=== PATIENT | female | born 1945 | race Caucasian/White ===

== ENCOUNTER → 2016-11-29 | Outpatient (CLI) | payer MEDICARE, OTHER ==
[~2016-11-29] VITALS: Ht 162.6 cm; Wt 68.0 kg
[~2016-11-29] MED LIST: LIDOCAINE 1% INJ 20 ML (XYLOCAINE) VIAL INJ ONE
[2016-11-29 09:20] VITALS: BP 120/72
--- NOTE | 2016-11-29 10:42 | Diagnostic Imaging Report ---
EXAMINATION: Ultrasound-guided biopsy of a breast mass. A metallic clip placed to rosangela biopsy site. INDICATION: Left breast mass. CONSENT: Informed consent was obtained from the patient. The risks, benefits, potential complications and alternatives were reviewed and all questions answered to the patient's satisfaction. FINDINGS: Ultrasound images demonstrate a left breast mass at 4:00 zone, 3 CM from the nipple. PROCEDURE: After sterile preparation and draping, 1% lidocaine was utilized for local anesthesia. A 13-gauge guide needle was introduced under live ultrasound guidance to the level of the lesion. Good needle position was documented with ultrasound images. 14-gauge biopsy needle was utilized and core biopsies were performed. Multiple samples were obtained and sent to pathology. A metallic clip was placed to rosangela the site of the biopsy. A subsequent mammogram is performed and confirms the proper positioning of the clip. The patient tolerated the procedure well with no immediate complications. IMPRESSION: Successful ultrasound-guided core biopsy of 4:00 left breast mass. Dictated by: Dictated on workstation # [id number]
--- NOTE | 2016-11-29 11:32 | Diagnostic Imaging Report ---
CC and lateral views of the left breast performed. INDICATION: Documentation of clip position after ultrasound-guided biopsy. FINDINGS: There is a clip satisfactorily positioned in the left breast, and it appears to be along the prominent mass in the central aspect of the left breast slightly inferiorly. IMPRESSION: Satisfactory position of the biopsy clip in central left breast mass. Pathology results are pending. Dictated by: Dictated on workstation # [id number]
== END ==
LOC: RAD 08:35
PROVIDERS: ATTEND Surgery
DX: N63 Unspecified lump in breast (principal)
CPT/HCPCS: 19083

== ENCOUNTER → 2016-12-05 | Outpatient (CLI) | payer MEDICARE, OTHER ==
[2016-12-05 12:08] LABS: BASOPHILS % (AUTO) 1 % (0-10); EOSINOPHILS # (AUTO) 0.1 10^3/uL (0.0-0.3); EOSINOPHILS % (AUTO) 2 % (0-10); LYMPHOCYTES # (AUTO) 3.4 X 10^3 (1.0-4.0); LYMPHOCYTES % (AUTO) 40 % (12-44); MEAN CORPUSCULAR HEMOGLOBIN 29 PG (25-34); MEAN CORPUSCULAR HGB CONC 33 G/DL (32-36); MEAN CORPUSCULAR VOLUME 89 FL (80-99); MEAN PLATELET VOLUME 9.5 FL (7.4-10.4); MONOCYTES # (AUTO) 0.8 X 10^3 (0.0-1.0); MONOCYTES % (AUTO) 9 % (0-12); NEUTROPHILS # (AUTO) 4.1 X 10^3 (1.8-7.8); NEUTROPHILS % (AUTO) 49 % (42-75); PLATELET COUNT 293 10^3/uL (130-400); RED BLOOD COUNT 5.04 10^6/uL (4.35-5.85); RED CELL DISTRIBUTION WIDTH 13.1 % (10.0-14.5); WHITE BLOOD COUNT 8.4 10^3/uL (4.3-11.0)
[2016-12-05 12:22] LABS: INR 0.9 (0.8-1.4); PROTHROMBIN TIME PATIENT 11.9 SEC (12.2-14.7)
[2016-12-05 12:30] LABS: ALANINE AMINOTRANSFERASE 22 U/L (0-55); ALBUMIN 4.4 GM/DL (3.2-4.5); ANION GAP 11 MMOL/L (5-14); ASPARTATE AMINO TRANSFERASE 20 U/L (5-34); BILIRUBIN,DIRECT 0.7 MG/DL (0.0-0.3); BILIRUBIN,INDIRECT 1.5 MG/DL; BILIRUBIN,TOTAL 2.2 MG/DL (0.1-1.0); BLOOD UREA NITROGEN 18 MG/DL (7-18); BUN/CREATININE RATIO 22; CALCIUM 10.2 MG/DL (8.5-10.1); CARBON DIOXIDE 22 MMOL/L (21-32); CHLORIDE 108 MMOL/L (98-107); CREATININE SERUM 0.82 MG/DL (0.60-1.30); GFR ESTIMATED > 60; GLUCOSE 109 MG/DL (70-105); POTASSIUM 4.3 MMOL/L (3.6-5.0); SODIUM 141 MMOL/L (135-145); TOTAL PROTEIN 7.5 GM/DL (6.4-8.2)
== END ==
LOC: LAB 11:32
PROVIDERS: ATTEND Surgery
DX: C50.912 Malignant neoplasm of unspecified site of left female breast (principal)
CPT/HCPCS: 36415; 80048; 80076; 85025; 85610

== ENCOUNTER → 2016-12-10 | Outpatient (CLI) | payer MEDICARE, OTHER ==
--- NOTE | 2016-12-11 18:07 | Diagnostic Imaging Report ---
EXAMINATION: PET/CT. INDICATION: Breast cancer. TECHNIQUE: After intravenous administration of 12.7 mCi of F18-FDG, a series of overlapping emission and transmission PET images was obtained. In the coronal, transaxial and sagittal planes, the area imaged extended from the skull base through the upper thighs. FINDINGS: The previous PET/CT exam performed on 08/31/2008 showed a roughly 3 cm parenchymal density in the right lung base. This had a maximum SUV of 3.7. Reportedly, this mass was subsequently resected, and a diagnosis of carcinoma of the lung was established. On this exam, there is no abnormal uptake in this area to suggest malignancy. The mammogram performed on 11/20/2016 at [facility] in [place], [place] indicated an area of architectural distortion almost 2 cm in diameter in the upper-outer aspect of the left breast. The ultrasound examination of this area noted a 2.8 cm area of posterior acoustical shadowing and did suggest a neoplastic process. This area was subsequently biopsied using ultrasound guidance on 11/29/2016. The results of the biopsy indicated infiltrating ductal carcinoma. On this study, there is slightly increased metabolic activity in the area of architectural distortion seen on the mammogram. This region has a maximum SUV of only 1.9. However, there are two small hypermetabolic nodes in the left axilla. These measure less than 1 cm in size, but each has an SUV value of approximately 5.0, and consequently these should be considered neoplastic until proven otherwise. Curiously, in reviewing the previous PET/CT exam from 2008 there is also slightly increased metabolic activity within the left breast in the area of architectural distortion. The maximum SUV in this area however is only 1.2. The hypermetabolic lymph nodes seen on this exam also showed minimally increased hypermetabolic activity on the prior exam. On the previous study these lymph nodes head SUV values of 1.9 and 2.5. There is no other hypermetabolic activity to suggest the presence of neoplasm. The CT images do show a small 1 cm parenchymal density in the left upper lobe (image [id number]). This finding was not present on the previous PET/CT exam, but there is no hypermetabolic activity associated with this finding to suggest it is neoplastic in nature. There is no acute abnormality identified. Incidental note is made of a horseshoe kidney. IMPRESSION: 1. There is only slightly increased hypermetabolic activity associated with the area of architectural distortion in the biopsy-proven region of infiltrating ductal carcinoma in the left breast. However, there are two hypermetabolic lymph nodes in the left axilla. These should be considered neoplastic until proven otherwise. 2. There is no other hypermetabolic activity to suggest the presence of neoplasm. 3. There is a horseshoe kidney. 4. These results will be discussed with Dr. Patterson. Dictated by: Dictated on workstation # [id number]
== END ==
LOC: RAD 10:59
PROVIDERS: ATTEND Surgery
DX: D05.12 Intraductal carcinoma in situ of left breast (principal)